=== PATIENT | male | born 1965 | race Two or more races ===

== ENCOUNTER 2019-12-14 02:57 | Inpatient (IN) | payer SELFPAY ==
[~2019-12-14] VITALS: Ht 167.6 cm; Wt 68.3 kg
[2019-12-14 03:38] LABS: Basophils # (auto) 0.1 uL; Basophils % (auto) 0.5 % (0.0-2.0); Eosinophils # (auto) 0.3 uL; Hematocrit 41.9 % (41.0-53.0); Hemoglobin 13.9 g/dL (13.5-17.5); Lymphocytes # (auto) 2.5 uL; Lymphocytes % (auto) 18.9 % (10.0-50.0); Mean Corpuscular Hemoglobin 30.4 pg (28.0-32.0); Mean Corpuscular Hgb Conc. 33.1 g/dL (32.0-36.0); Monocytes # (auto) 0.9 uL; Neutrophils # (auto) 9.5 uL; Neutrophils % (auto) 71.6 % (37.0-80.0); Platelet Count (auto) 329 10^3/uL (140-450); Red Blood Cells 4.55 10^6/uL (4.5-5.90); Red Cell Distribution Width 13.7 % (11.8-14.3); White Blood Cell 13.3 10^3/uL (4.4-10.8)
[2019-12-14 03:50] LABS: Albumin 4.1 g/dL (3.4-5.0); Calcium 8.9 mg/dL (8.5-10.1); Potassium 3.8 mmol/L (3.5-5.1)
[2019-12-14 03:52] LABS: BUN/Creatinine Ratio 16.3
[2019-12-14 03:55] LABS: Bilirubin, Total 1.2 mg/dL (0.2-1.0); Total Protein 7.6 g/dL (6.4-8.2)
[2019-12-14 04:58] LABS: INR 1.01 (0.9-1.15); Partial Thromboplastin Time 29.9 sec (23.64-32.05)
[2019-12-14 06:09] LABS: Urine Bacteria FEW /hpf (None Seen); Urine Blood Negative /uL (Negative); Urine Hyaline Cast FEW /lpf (0 - 2); Urine Mucus FEW (None Seen); Urine Specific Gravity 1.008 (1.001-1.035); Urine Sperm PRESENT /hpf (None Seen); Urine WBC 1 /hpf (0 - 3)
[2019-12-14 06:25] LABS: Alcohol, Urine < 3.0 mg/dL (0-5); Amphetamine Screen, Urine POSITIVE (NEGATIVE); Barbiturate Scree,Urine NEGATIVE (NEGATIVE); Benzodiazephine Screen, Urine NEGATIVE (NEGATIVE); Cannabinoid Screen, Urine NEGATIVE (NEGATIVE); Cocaine Screen, Urine NEGATIVE (NEGATIVE); Phencyclidine Screen, Urine NEGATIVE (NEGATIVE)
[2019-12-14] MEDS ORDERED: MORPHINE SULFATE 4 MG/ML SYR/VIAL IV PRN (06:30)
[2019-12-14] MEDS ORDERED: ONDANSETRON HCL 4 MG/2 ML VIAL IV PRN (06:30)
[2019-12-14 06:32] LABS: Opiate Scree,Urine NEGATIVE (NEGATIVE)
[2019-12-14] MEDS ORDERED: SODIUM CHLORIDE 0.9% 1,000 ML IV ONE (06:45)
--- NOTE | 2019-12-14 08:46 | NUR ---
NO REPORT RECEIVED FROM ER.
--- NOTE | 2019-12-14 08:47 | NUR ---
MS admit from [facility] admitted to tele/MS WITH NO SBAR received. Patient oriented to DELILAH ROJAS, primary RN, unit, room, bed, and unit policies regarding patient care and visiting hours. Patient weighed by bedscale and encouraged to call if they need something. All questions and concerns addressed, patient verbalized understanding.
[2019-12-14 09:13] VITALS: BP 128/74
[2019-12-14] MEDS ORDERED: PNEUMOCOCCAL VACC POLYS 25 MCG/0.5 ML VIAL IM ONE (09:45)
[2019-12-14] MEDS ORDERED: INFLUENZA QUAD 2019-2020 0.5ml SYRG IM ONE (09:45)
[2019-12-14] MEDS: MORPHINE SULF INJ 2 MG/ML SYRINGE 1ML IV PRN ×2 (13:30→20:41)
[2019-12-14 14:13] VITALS: BP 120/67
[2019-12-14 17:00] VITALS: BP 114/68
--- NOTE | 2019-12-14 17:00 | NUR ---
PATIENT ADVISED THAT THE FOREIGN OBJECT HAS PASSED.
--- NOTE | 2019-12-14 17:05 | NUR ---
FOREIGN OBJECT VISUALIZED TO BE INTACT.
[2019-12-14 22:00] VITALS: BP 111/68
[2019-12-15 04:58] VITALS: BP 107/63
--- NOTE | 2019-12-15 07:15 | NUR ---
Opening Shift Note Received report from NOC shift RN,Assumed care of patient, awake and alert. No S/S of distress/SOB or pain. Instructed on POC and to call for assist PRN. Fall precaution measures in place, will continue to monitor for changes Q1hr and PRN.
[2019-12-15 09:00] VITALS: BP 138/77
--- NOTE | 2019-12-15 11:15 | NUR ---
ROUNDING DONE,NOTED PATIENT NOT IN ROOM BUT BELONGINGS PRESENT ,NO AMA TO GO OUT /SMOKE SIGNED.
--- NOTE | 2019-12-15 11:42 | NUR ---
MD VISIT DRR. Trevin MONTE HERE TO SEE AND EXAMINED PATIENT,PATIENT OFF UNIT,MD MADE AWARE PATIENT HAS BEEN GONE SINCE 1114,RECEIVED ORDER TO CANCELL TELE PSYCH CONSULT AND DISCHARGE PATIENT.
--- NOTE | 2019-12-15 11:45 | NUR ---
SECURITY CALLED AND INFORMED TO SEARCH PREMISES,IF PATIENT SEEN TO ADVICE PATIENT TO RETURN TO ROOM
--- NOTE | 2019-12-15 12:00 | NUR ---
PATIENT RETURN TO ROOM WITH FAMILY,STATED WENT TO MEET FAMILY IN THE PARKING LOT,EXPLAIN POLICY OF GOING OUT FROM HOSPITAL BUILDING, EXPLAIN PLAN OF CARE AND DISCHARGE PLAN,VERBALIZED UNDERSTANDING.
[2019-12-15 12:54] VITALS: BP 138/77
--- NOTE | 2019-12-15 13:10 | NUR ---
Patient change mind,does not want to received Flu and Pneumonia vaccine
--- NOTE | 2019-12-15 13:25 | NUR ---
Discharge instructions given as ordered. Encourage to follow up with PMD as instructed or to follow up with [facility] urgent care,to call [place] for [facility] assistance or follow up at [facility] . All questions and concerns addressed. Patient verbalized understanding. Medication reconciliation form completed and copy given to patient. IV removed by patient unable to see catheter patient instructed to wait for RN next time to discontinue IV site.Patient discharge, prefers to ambulate,with all personal belongings. No distress noted at time of departure.
== END 2019-12-15 13:25 | disposition home or self-care (01) | DRG 254 ==
LOC: ER 03:02 → OVERFLOW 03:03 → WEST WING 08:47
PROVIDERS: ADMIT Hospitalist; ATTEND Family Medicine
DX: T18.5XXA Foreign body in anus and rectum, initial encounter (principal); F15.90 Other stimulant use, unspecified, uncomplicated; X58.XXXA Exposure to other specified factors, initial encounter; F17.210 Nicotine dependence, cigarettes, uncomplicated; Y93.89 Activity, other specified; Y92.89 Other specified places as the place of occurrence of the external cause; Y99.8 Other external cause status; Z93.3 Colostomy status; Z90.49 Acquired absence of other specified parts of digestive tract
CPT/HCPCS: 36415; 74176; 80053; 80307; 81001; 83605; 85025; 85610; 85730; G0378; J2405